=== PATIENT | female | born 2000 | race African-American/Black ===

== ENCOUNTER 2022-03-02 21:02 | Inpatient (IN) ==
[2022-03-02] MEDS ORDERED: OXYTOCIN/LR 20 UNIT/1,000 ML BAG IV ONE (21:12)
[2022-03-02] MEDS ORDERED: TRANEXAMIC ACID 1,000 MG in SODIUM CHLORIDE 0.9% 100 ML IV PRN (21:12)
[2022-03-02] MEDS ORDERED: miSOPROStoL 200 MCG TABLET RECTAL PRN (21:12)
[2022-03-02] MEDS ORDERED: MEPERIDINE 25 MG/1 ML VIAL IV PRN (21:12)
[2022-03-02] MEDS ORDERED: ONDANSETRON 4 MG/2 ML VIAL IV PRN (21:12)
[2022-03-02] MEDS ORDERED: CARBOPROST TROMETHAMINE 250 MCG/ML AMP IM PRN (21:12)
[2022-03-02] MEDS ORDERED: METHYLERGONOVINE 0.2 MG/1 ML AMP IM PRN (21:12)
[2022-03-02] MEDS ORDERED: LACTATED RINGERS 1,000 ML IV SCH (21:30)
[2022-03-02 21:41] LABS: Basophils % 0.1 % (0.0-0.8); Eosinophils % 0.3 % (0.00-10.9); Hematocrit 28.8 VOL% (35.7-47.0); Hemoglobin 9.2 GM/DL (12.0-16.0); Immature Granulocytes % 0.4 %; Immature Granulocytes Absolute 0.03 #; Lymphocytes # 2.5 10*3/uL (1.4-4.0); Lymphocytes % 35.5 % (21.3-54.2); Mean Corpuscular HGB Conc 31.9 GM/DL (32-36); Mean Corpuscular Volume 85.7 FL (87-102); Mean Platelet Volume 11.2 FL (9.6-12.0); Monocytes # 0.7 10*3/uL (0.11-0.8); Monocytes % 9.1 % (1.7-12.7); Neutrophils % 54.6 % (38.7-73.9); Platelet Count 221 T/CUMM (130-400); Red Blood Count 3.36 MC/CUMM (3.8-5.5); White Blood Count 7.2 T/CUMM (4-12)
[2022-03-02 22:05] LABS: Alanine Aminotransferase 9 U/L (13-56); Albumin 2.8 G/DL (3.4-5.0); Alkaline Phosphatase 144 U/L (45-117); Aspartate Amino Transferase 15 U/L (0-37); Bilirubin,Total < 0.39 MG/DL (0.20-1.00); Blood Urea Nitrogen 6 MG/DL (7-18); Calcium 8.3 MG/DL (8.5-10.1); Carbon Dioxide 21 MMOL/L (21-32); Chloride 112 MMOL/L (98-107); Glucose 98 MG/DL (74-106); Osmolality,Calculated 278.3 MOS/KG (273-304); Potassium 3.8 MMOL/L (3.5-5.1); Sodium 141 MMOL/L (136-145); Total Protein 7.4 G/DL (6.4-8.2)
[2022-03-03] MEDS ORDERED: OXYTOCIN/LR 20 UNIT/1,000 ML BAG IV SCH (03:00)
[2022-03-03] MEDS ORDERED: diphenhydrAMINE 50 MG/1 ML VIAL IV PRN ×4 (05:20→05:50)
[2022-03-03] MEDS ORDERED: ePHEDrine 50 MG/ML VIAL IV PRN ×3 (05:20→05:50)
[2022-03-03] MEDS ORDERED: PROMETHAZINE 25 MG/1 ML VIAL IM ONE ×2 (05:20→05:50)
[2022-03-03] MEDS ORDERED: CITRIC ACID/SODIUM CITRATE 30 ML UDCUP PO ONE ×2 (05:20→05:50)
[2022-03-03] MEDS ORDERED: hydrOXYzine HCL 25 MG/1 ML VIAL IM PRN ×2 (05:20→05:50)
[2022-03-03] MEDS ORDERED: FAMOTIDINE 20 MG/2 ML VIAL IV ONE ×2 (05:20→05:50)
[2022-03-03] MEDS ORDERED: LACTATED RINGERS 1,000 ML IV ONE ×2 (05:20→05:50)
[2022-03-03] MEDS ORDERED: fentaNYL 2 MCG/ROPIV 0.2% EPID 100 ML EPIDURAL SCH ×2 (05:30→06:00)
[2022-03-03 08:34] LABS: Bilirubin,Urine Negative (Negative); Blood, Urine Negative (Negative); Glucose,Urine (UA) Negative (Negative); Ketones,Urine Negative (Negative); Mucus,Urine Occasional /LPF (Occasional); Nitrite,Urine Negative (Negative); Protein,Urine Negative (Negative); RBC,Urine <1 /HPF (0-4); Squamous Epithelial Cell,Urine Occasional /HPF (0-10); Urine Appearance CLEAR (Clear); Urine Color Yellow (Yellow); Urine Specific Gravity 1.011 (1.001-1.035); Urine Urobilinogen < 2.0 eU/dL (<2.0)
[2022-03-03 13:01] LABS: Cord Venous Blood HCO3 21.4 MMOL/L; Cord Venous Blood PO2 33.2
[2022-03-03] MEDS ORDERED: BENZOCAINE 20%/MENTHOL 0.5% SPRAY 56 GM CAN TOP PRN (16:01)
[2022-03-03] MEDS ORDERED: HYDROCORTISONE 2.5% RECTAL CREAM 30 GM TUBE TOP PRN (16:01)
[2022-03-03] MEDS ORDERED: DIPH/TET/ACEL PERT BOOSTER VACCINE 0.5 ML VIAL IM ONE (16:01)
[2022-03-03] MEDS ORDERED: OXYTOCIN/LR 20 UNIT/1,000 ML BAG IV ONE (16:01)
[2022-03-03] MEDS ORDERED: ACETAMINOPHEN 325 MG TABLET PO PRN (16:01)
[2022-03-03] MEDS ORDERED: BISACODYL 10 MG SUPP RECTAL PRN (16:01)
[2022-03-03] MEDS ORDERED: MEASLES/MUMPS/RUBELLA VACCINE 0.5 ML VIAL SUBCUT ONE (16:01)
[2022-03-03] MEDS ORDERED: LANOLIN 50% CREAM 0.3 OZ TUBE TOP PRN (16:01)
[2022-03-03] MEDS ORDERED: RHO(D) IMMUNE GLOBULIN 300 MCG SYRINGE IM ONE (16:01)
[2022-03-03] MEDS ORDERED: WITCH HAZEL PADS 100/JAR TOP PRN (16:01)
[2022-03-03] MEDS: IBUPROFEN 800 MG TABLET PO PRN (18:45)
[2022-03-03] MEDS: oxyCODONE/ACETAMINOPHEN 5-325 MG TABLET PO PRN (18:46)
[2022-03-03] MEDS: DOCUSATE SODIUM 100 MG CAPSULE PO SCH (21:44)
[2022-03-04 05:14] LABS: Basophils % 0.1 % (0.0-0.8); Eosinophils # 0.1 10*3/uL (0.0-0.87); Eosinophils % 0.8 % (0.00-10.9); Hematocrit 23.7 VOL% (35.7-47.0); Hemoglobin 7.5 GM/DL (12.0-16.0); Immature Granulocytes % 0.8 %; Immature Granulocytes Absolute 0.08 #; Lymphocytes # 2.5 10*3/uL (1.4-4.0); Lymphocytes % 24.4 % (21.3-54.2); Mean Corpuscular HGB Conc 31.6 GM/DL (32-36); Mean Corpuscular Volume 84.9 FL (87-102); Mean Platelet Volume 11.7 FL (9.6-12.0); Monocytes # 0.7 10*3/uL (0.11-0.8); Monocytes % 6.3 % (1.7-12.7); Neutrophils % 67.6 % (38.7-73.9); Platelet Count 158 T/CUMM (130-400); Red Blood Count 2.79 MC/CUMM (3.8-5.5); Red Cell Distribution Width 13.9 % (9.3-17.3); White Blood Count 10.4 T/CUMM (4-12)
[2022-03-04] MEDS: oxyCODONE/ACETAMINOPHEN 5-325 MG TABLET PO PRN (05:29)
[2022-03-04] MEDS: IBUPROFEN 800 MG TABLET PO PRN ×2 (05:31→14:55)
[2022-03-04] MEDS ORDERED: INFLUENZA VIRUS VACCINE 0.5 ML SYRINGE IM ONE (09:00)
[2022-03-04] MEDS: DOCUSATE SODIUM 100 MG CAPSULE PO SCH (09:37)
[2022-03-04] MEDS: FERROUS SULFATE 325 MG TABLET PO SCH (09:37)
[2022-03-04] MEDS ORDERED: SODIUM CHLORIDE 0.9% 1,000 ML IV PRN (09:47)
[2022-03-05] MEDS: DOCUSATE SODIUM 100 MG CAPSULE PO SCH ×2 (01:02→10:16)
[2022-03-05] MEDS: FERROUS SULFATE 325 MG TABLET PO SCH ×2 (01:02→10:17)
[2022-03-05] MEDS: oxyCODONE/ACETAMINOPHEN 5-325 MG TABLET PO PRN ×2 (03:05→10:18)
[2022-03-05] MEDS: IBUPROFEN 800 MG TABLET PO PRN (03:06)
[2022-03-05 05:22] LABS: Basophils % 0.2 % (0.0-0.8); Eosinophils # 0.1 10*3/uL (0.0-0.87); Eosinophils % 0.7 % (0.00-10.9); Hematocrit 31.1 VOL% (35.7-47.0); Hemoglobin 10.2 GM/DL (12.0-16.0); Immature Granulocytes % 0.6 %; Immature Granulocytes Absolute 0.07 #; Lymphocytes # 3.3 10*3/uL (1.4-4.0); Mean Corpuscular HGB Conc 32.8 GM/DL (32-36); Mean Platelet Volume 11.9 FL (9.6-12.0); Monocytes # 0.9 10*3/uL (0.11-0.8); Monocytes % 7.2 % (1.7-12.7); Neutrophils % 64.3 % (38.7-73.9); Platelet Count 189 T/CUMM (130-400); Red Blood Count 3.66 MC/CUMM (3.8-5.5); Red Cell Distribution Width 14.1 % (9.3-17.3); White Blood Count 12.3 T/CUMM (4-12)
[2022-03-05] MEDS ORDERED: DIPH/TET/ACEL PERT BOOSTER VACCINE 0.5 ML VIAL IM ONE (09:59)
[2022-03-05 11:11] VITALS: BP 129/72
[2022-03-05] MEDS ORDERED: INFLUENZA VIRUS VACCINE 0.5 ML SYRINGE IM ONE (11:21)
== END 2022-03-05 12:55 | disposition home or self-care (01) | DRG 560 ==
LOC: N.LD 21:02 → N.OB 03-03 16:00
PROVIDERS: ADMIT Obstetrics & Gynecology; ATTEND Obstetrics & Gynecology